=== PATIENT | male | born 1965 | race African-American/Black ===

== ENCOUNTER → 2016-03-04 | Outpatient (CLI) | payer MEDICARE, MEDICAID ==
[~2016-03-04] MED LIST: ASPIRIN 81M81 MG/TA2 PO; BRILINTA90 MG PO; COREG 3.123.125 MG/T PO; FLAGYL500 MG PO; LASIX 20MG TABL20 MG PO; LEVAQUIN 5500 MG/TA1 PO; LEVEMIR100 U/ML SC; NOVOLOG 100U100 U/M1 SC; OXYCONTIN30 MG PO; RYZOLT100 MG PO; VIAGRA50 MG PO; ZESTRIL 5MG5 MG PO; ZESTRIL2.5 MG PO
== END ==
LOC: SUN.DIA 07:42
DX: E10.65 Type 1 diabetes mellitus with hyperglycemia (principal); Z71.3 Dietary counseling and surveillance; Z96.41 Presence of insulin pump (external) (internal); I10 Essential (primary) hypertension; Z87.891 Personal history of nicotine dependence
CPT/HCPCS: G0108

== ENCOUNTER → 2021-10-17 | Outpatient (CLI) | payer MEDICARE, MEDICAID | LOC: COL.VAS 12:30 | DX: I70.203 Unspecified atherosclerosis of native arteries of extremities, bilateral legs (principal) ==

== ENCOUNTER → 2021-10-18 | Outpatient (CLI) | payer MEDICARE, MEDICAID | LOC: COL.RAD 14:00 | DX: I25.10 Atherosclerotic heart disease of native coronary artery without angina pectoris (principal); R91.1 Solitary pulmonary nodule; F03.90 Unspecified dementia, unspecified severity, without behavioral disturbance, psychotic disturbance, mood disturbance, and anxiety | CPT/HCPCS: Q9967 ==

== ENCOUNTER → 2021-11-06 | Outpatient (CLI) | payer MEDICARE, MEDICAID | LOC: COL.PUL 07:59 | DX: Z01.818 Encounter for other preprocedural examination (principal); I25.10 Atherosclerotic heart disease of native coronary artery without angina pectoris ==